=== PATIENT | male | born 1975 | race African-American/Black ===

== ENCOUNTER 2017-12-12 02:35 | Emergency (ER) | payer OTHER ==
[~2017-12-12] VITALS: Ht 182.9 cm; Wt 86.2 kg
--- NOTE | ~2017-12-12 | EKG ---
[facility] [address] [place] [address] ELECTROCARDIOGRAM REPORT Name: BEAU WILCOX Room #: DEP TATUM Lord#: [id number] Admission: 12/12/17 Attend Phys: Discharge: 12/12/17 Date of : 71 Report #: [id number] THIS REPORT FOR: //name// [facility] ED Test Date: 2017-12-12 Test Time: 02:42:16 Pat Name: BEAU WILCOX Department: Room: Gender: Antenna Installer: KATHLEEN : 1975 Requested By: Sunny [place] Order Number: [id number] MD: Cristobal Bermudez Measurements Intervals [place] Rate: 59 P: 78 MN: 183 QRS: 40 QRSD: 91 T: 41 QT: 432 QTc: 428 Interpretive Statements Sinus rhythm Minimal ST elevation, anterior leads Compared to ECG 09/04/2013 08:02:07 No significant change was found Electronically Signed On 12-12-2017 8:18:03 CDT by Cristobal Bermudez [email or web address] <ELECTRONICALLY SIGNED> By: Cristobal Bermudez MD, [facility] 12/12/17817 [id number] Cristobal Bermudez MD, FACC /EPI
[~2017-12-12 02:35] MED LIST: IBUPROFEN 600600 M1 PO; NOHOMEMEDICATIONS
[2017-12-12 03:10] LABS: HEMATOCRIT 37.8 % (42.0-52.0); HEMOGLOBIN 12.9 gm/dL (14.0-18.0); MCH 30.9 pg (26.0-34.0); MCV 90.8 fL (80.0-100.0); PLATELET COUNT 236 thou/uL (150-400); RBC 4.17 mil/uL (4.50-6.00); WBC 10.6 thou/uL (4.0-11.0)
[2017-12-12 03:18] LABS: ANION GAP 8 mmol/L (7-16); BUN 11 mg/dL (7-18); CALCIUM 8.9 mg/dL (8.5-10.1); CHLORIDE 104 mmol/L (98-107); CO2 27 mmol/L (21-32); CREATININE 1.2 mg/dL (0.7-1.3); GLUCOSE 151 mg/dL (74-106); POTASSIUM 3.1 mmol/L (3.5-5.1); SODIUM 139 mmol/L (136-145)
[2017-12-12 03:27] LABS: ALBUMIN 3.5 g/dL (3.4-5.0); MAGNESIUM 1.9 mg/dL (1.8-2.4); SGOT 27 U/L (15-37); SGPT 24 U/L (30-65); TOTAL BILIRUBIN 0.3 mg/dL (<0.1-1.0); TOTAL PROTEIN 6.5 g/dL (6.4-8.2); TROPONIN-I < 0.04 ng/mL (<0.06)
[2017-12-12 03:53] LABS: ABSOLUTE NEUTROPHILS 3.6 thou/uL (1.4-8.2); ATYPICAL LYMPHS 4 %
[2017-12-12 05:54] VITALS: BP 108/56
== END 2017-12-12 05:55 | disposition home or self-care (01) ==
LOC: ER 02:35
PROVIDERS: Emergency Medicine
DX: E86.0 Dehydration (principal); E87.6 Hypokalemia; I95.9 Hypotension, unspecified; F17.210 Nicotine dependence, cigarettes, uncomplicated